=== PATIENT | female | born 1955 | race Two or more races ===

== ENCOUNTER 2020-10-10 07:55 | Outpatient (REF) | payer MEDICARE, SELFPAY ==
[2020-10-10 09:35] LABS: Cholesterol 152 mg/dL; HDL Cholesterol 37 mg/dL; LDL Cholesterol Calculated 85 mg/dl; Triglycerides 154 mg/dL
== END 2020-10-10 07:56 | disposition home or self-care (01) ==
LOC: HO.LAB 07:55
PROVIDERS: Visit Provider Internal Medicine
DX: E78.5 Hyperlipidemia, unspecified (principal)
CPT/HCPCS: 80061; 84443

== ENCOUNTER 2021-06-02 11:26 | Outpatient (REF) | payer OTHER, SELFPAY ==
[2021-06-02 12:32] LABS: Cholesterol 180 mg/dL; HDL Cholesterol 41 mg/dL; LDL Cholesterol Calculated 117 mg/dl; Triglycerides 112 mg/dL
[2021-06-02 12:53] LABS: Thyroid Stimulating Hormone 0.71 uIU/mL (0.32-4.0)
== END 2021-06-02 11:27 | disposition home or self-care (01) ==
LOC: HO.LAB 11:26
PROVIDERS: PCP Internal Medicine; Visit Provider Internal Medicine
DX: E03.9 Hypothyroidism, unspecified (principal); E11.9 Type 2 diabetes mellitus without complications
CPT/HCPCS: 36415; 80061; 84443

== ENCOUNTER 2021-08-29 12:24 | Outpatient (REF) | payer OTHER, SELFPAY ==
--- NOTE | ~2021-08-29 | MM_ITS ---
EXAMINATION: MM SCREENING DIGITAL BREAST TOMOSYNTHESIS, BILATERAL CLINICAL INFORMATION: Screening. Asymptomatic. The lifetime risk of breast cancer based on the Tyrer-Cuzick Model is 3%. COMPARISON: Mammography: 07/19/2020, 04/18/2019, 03/15/2018 TECHNIQUE: Digital breast tomosynthesis is performed in both the craniocaudal and mediolateral oblique views along with computer-aided detection (CAD). Synthesized 2D images are generated from the tomosynthesis. FINDINGS: There are scattered areas of fibroglandular density (ACR BI-RADS breast composition Category b). There are no significant masses, abnormal calcifications, or other abnormalities. Parenchymal pattern is similar to prior exams. There is stable circumscribed nodule mid upper outer right breast likely intraparenchymal node. Low left axillary tail node is also stable. Skin contours are smooth. MM/MM tomosynthesis screening BI IMPRESSION: No mammographic evidence of malignancy. ASSESSMENT: BI-RADS 2: Benign RECOMMENDATION: Routine annual mammography screening. This patient's information was entered into a reminder system with a target due date for their next mammogram.
== END 2021-08-29 12:25 | disposition home or self-care (01) ==
LOC: HO.MAMMO 12:24
PROVIDERS: PCP Internal Medicine; Visit Provider Internal Medicine
DX: Z12.31 Encounter for screening mammogram for malignant neoplasm of breast (principal)
CPT/HCPCS: 77063; 77067

== ENCOUNTER 2021-10-26 10:46 | Outpatient (REF) | payer OTHER, SELFPAY ==
[2021-10-26 12:22] LABS: Cholesterol 179 mg/dL; HDL Cholesterol 37 mg/dL; LDL Cholesterol Calculated 117 mg/dl; Triglycerides 127 mg/dL
[2021-10-26 12:27] LABS: Uric Acid 7.6 mg/dL (2.4-5.7)
== END 2021-10-26 10:47 | disposition home or self-care (01) ==
LOC: HO.LAB 10:46
PROVIDERS: PCP Internal Medicine; Visit Provider Internal Medicine
DX: E11.9 Type 2 diabetes mellitus without complications (principal); E03.9 Hypothyroidism, unspecified; M10.9 Gout, unspecified
CPT/HCPCS: 36415; 80061; 84443; 84550

== ENCOUNTER 2021-11-20 10:11 | Day surgery (SDC) | payer OTHER, SELFPAY ==
[2021-11-14 13:40] VITALS: BMI 40.4
--- NOTE | 2021-11-17 09:59 | HO.ANESPROP2 ---
Documented by User: Glenna Alarcon NP 11/17/21 10:00 HPI - Anesthesia Eval Consult details Narrative: 66yo F for Colonoscopy PMFSH Active Problems Active Problems: All Active Problems (Updated 11/14/21 @ 13:41 by Rebecca Landry RN) Obesity (Acute) Hyperlipidemia (Acute) Past Medical History Medical History Asthma COVID-19 vaccine series completed Hyperlipidemia Hypothyroid Obesity Family History Family History (Updated 06/09/21 @ 09:12 by MUKUL Marques) Father Brain aneurysm Mother Medical history unknown Surgical History Surgical History H/O colonoscopy H/O rectal polypectomy History of cholecystectomy History of surgery History of total abdominal hysterectomy and bilateral salpingo-oophorectomy History of tubal ligation History of ventral hernia repair Social History Social History Housing: House Alcohol intake: never Patient Tobacco Use Status: Never used Tobacco e-Cigarette/Vaping Use: Never Used Second Hand Smoke Exposure: No Use of substances other than those prescribed or required for medical reasons: No Have you been hit, kicked, punched, or otherwise hurt by someone within the past year? If so, by whom?: No Are you DNR?: No Advance Directives: No (primary contact is son but no official HCP form) Advance Directives Information Provided: Yes (brochure mailed) Advance Directives on File: No Recently lost weight without trying: No Eating poorly because of decreased appetite: No Nutrition Risks: No Nutritional Risk service: No Current occupational status: employed Meds Allergies Allergy/AdvReac Type Severity Reaction Status Date / Time No Known Allergies Allergy Verified 10/31/21 10:57 Exam Exam Date and Time: November 17, 2021 0959 Height,Weight and Vital Signs: Height 5 ft 2 in Weight 100.244 kg Assessment and Plan Assessment Anesthesia Assessment: Chart Reviewed Documented by User: Kirt Patricio MD 11/20/21 11:17 PMFSH Past Medical History Medical History Asthma COVID-19 vaccine series completed Hyperlipidemia Hypothyroid Obesity Family History Family History (Updated 06/09/21 @ 09:12 by MUKUL Marques) Father Brain aneurysm Mother Medical history unknown Family history of problems with anesthesia: No Surgical History Surgical History H/O colonoscopy H/O rectal polypectomy History of cholecystectomy History of surgery History of total abdominal hysterectomy and bilateral salpingo-oophorectomy History of tubal ligation History of ventral hernia repair History of Problems with Anesthesia: No Social History Social History Housing: House Alcohol intake: never Patient Tobacco Use Status: Never used Tobacco e-Cigarette/Vaping Use: Never Used Second Hand Smoke Exposure: No Use of substances other than those prescribed or required for medical reasons: No Have you been hit, kicked, punched, or otherwise hurt by someone within the past year? If so, by whom?: No Are you DNR?: No Advance Directives: No (primary contact is son but no official HCP form) Advance Directives Information Provided: Yes (brochure mailed) Advance Directives on File: No Recently lost weight without trying: No Eating poorly because of decreased appetite: No Nutrition Risks: No Nutritional Risk service: No Current occupational status: employed Meds Allergies Allergy/AdvReac Type Severity Reaction Status Date / Time No Known Allergies Allergy Verified 10/31/21 10:57 Exam Airway Mallampati Class: III TM Dist: >3cm Neck ROM: Full Assessment and Plan Assessment Anesthesia Assessment: Anesthesia Plan Discussed Final Anesthetic Review Family History of Problems with Anesthesia: No History of Problems with Anesthesia: No NPO: Yes ASA Class: II Final Preanesthetic Review: No Changes in Pt Med Stat, Meds/Allgs Chart Reviewed, Consent Obtained/Reviewed and Anes Risks/Benef Reviewed Patient Risk: Intermediate Procedure Risk: Low Anesthetic Plan Anesthetic Plan: MAC: Disposition: Standard PACU
[2021-11-20 10:38] VITALS: BP 137/80; PULSE 98; RESP 18; TEMP 36; O2SAT 99
[2021-11-20] MEDS: Lactated Ringers 1,000 ML 100 ML IVCONT (10:45)
[2021-11-20 12:55] VITALS: BP 101/61; PULSE 86; RESP 14; TEMP 36.6; O2SAT 98
--- NOTE | 2021-11-20 12:56 | P.BOP_ITS ---
Brief Operative Note Date of Service: 11/20/21 Pre-op diagnosis: Screening Post-op diagnosis: other (Diverticulosis) Procedure: Colonoscopy to the cecum Surgeon: Joaquín De Los Santos Anesthesia: MAC Was an Engineering Test Specialist used for this Procedure?: No Estimated blood loss (mL): 0 Pathology: none sent Condition: stable Disposition: PACU
[2021-11-20 13:10] VITALS: BP 126/86; PULSE 81; RESP 18; TEMP 36.6; O2SAT 98
--- NOTE | 2021-11-20 23:02 | OP_ITS ---
SURGEON: Joaquín De Los Santos MD INDICATIONS: The patient presents for evaluation of colorectal cancer screening and personal history of tubular adenoma of the colon. Full consent was obtained from her for this, including risks of bleeding and perforation. PREOPERATIVE DIAGNOSIS: POSTOPERATIVE DIAGNOSIS: PROCEDURE PERFORMED: Colonoscopy to the cecum. ESTIMATED BLOOD LOSS: COMPLICATIONS: ANESTHESIA: Monitored anesthesia care. ASSISTANTS: SPECIMENS: PREOPERATIVE DIAGNOSES: Colorectal cancer screening and personal history of tubular adenoma of the colon. POSTOPERATIVE DIAGNOSES: Colorectal cancer screening and personal history of tubular adenoma of the colon, diverticulosis, and internal hemorrhoids. DESCRIPTION OF PROCEDURE: The patient was placed in the left lateral decubitus position. The digital rectal exam revealed no abnormalities. The Olympus video pediatric colonoscope was entered into the rectum and advanced easily to the cecum. Once in the cecum, I did identify normal-appearing cecal pouch with appendiceal orifice and a normal-appearing ileocecal valve. The entire cecum and ileocecal valve appeared normal. There was transillumination of light deep in the right lower quadrant. The scope was slowly withdrawn assessing all mucosal surfaces carefully. Preparation was excellent. I did not visualize any sign of polyps, colitis, or angiodysplasia. There was a moderate amount of sigmoid diverticulosis. In the rectum, the scope was retroflexed visualizing internal hemorrhoids, but no other pathology. The rectal mucosa appeared normal. The scope was straightened and withdrawn from the patient. She tolerated the procedure well and was returned to the recovery area in stable condition. IMPRESSION: 1. Diverticulosis. 2. Internal hemorrhoids. PLAN: I would recommend repeat colonoscopy in 5 years for further screening. She will otherwise see me on a p.r.n. basis. Joaquín De Los Santos MD RMW/BALDOL / [phone]
== END 2021-11-20 13:42 | disposition home or self-care (01) ==
PROVIDERS: PCP Internal Medicine; Visit Provider Internal Medicine
PROC: 0DJD8ZZ Inspection of Lower Intestinal Tract, Via Natural or Artificial Opening Endoscopic (ICD-10-PCS; CPT 45378; principal; 2021-11-20 11:10)
DX: Z12.11 Encounter for screening for malignant neoplasm of colon (principal); Z86.010 Personal history of colon polyps; K57.30 Diverticulosis of large intestine without perforation or abscess without bleeding; K64.8 Other hemorrhoids; E78.00 Pure hypercholesterolemia, unspecified; E03.9 Hypothyroidism, unspecified; J45.20 Mild intermittent asthma, uncomplicated; Z79.899 Other long term (current) drug therapy
CPT/HCPCS: 45378

== ENCOUNTER 2022-01-31 12:49 | Outpatient (REF) | payer OTHER, SELFPAY ==
[2022-01-31 14:33] LABS: Cholesterol 203 mg/dL; HDL Cholesterol 40 mg/dL; LDL Cholesterol Calculated 138 mg/dl; Triglycerides 127 mg/dL
== END 2022-01-31 12:50 | disposition home or self-care (01) ==
LOC: HO.LAB 12:49
PROVIDERS: PCP Internal Medicine; Visit Provider Internal Medicine
DX: Z00.00 Encounter for general adult medical examination without abnormal findings (principal)
CPT/HCPCS: 36415; 80061; 84443

== ENCOUNTER 2022-05-24 08:31 | Outpatient (REF) | payer OTHER, SELFPAY ==
[2022-05-24 09:22] LABS: Cholesterol 185 mg/dL; HDL Cholesterol 37 mg/dL; LDL Cholesterol Calculated 114 mg/dl; Triglycerides 170 mg/dL
[2022-05-24 09:45] LABS: Thyroid Stimulating Hormone 0.49 uIU/mL (0.32-4.0)
== END 2022-05-24 08:32 | disposition home or self-care (01) ==
LOC: HO.LAB 08:31
PROVIDERS: PCP Internal Medicine; Visit Provider Internal Medicine
DX: Z00.00 Encounter for general adult medical examination without abnormal findings (principal)
CPT/HCPCS: 36415; 80061; 84443

== ENCOUNTER 2022-08-28 08:09 | Outpatient (REF) | payer OTHER, SELFPAY ==
[2022-08-28 09:28] LABS: Cholesterol 185 mg/dL; HDL Cholesterol 41 mg/dL; LDL Cholesterol Calculated 105 mg/dl; Triglycerides 197 mg/dL
[2022-08-28 09:53] LABS: Thyroid Stimulating Hormone 0.49 uIU/mL (0.32-4.0)
== END 2022-08-28 08:10 | disposition home or self-care (01) ==
LOC: HO.LAB 08:09
PROVIDERS: PCP Internal Medicine; Visit Provider Internal Medicine
DX: E03.9 Hypothyroidism, unspecified (principal); E78.5 Hyperlipidemia, unspecified
CPT/HCPCS: 36415; 80061; 84443

== ENCOUNTER 2022-09-06 11:39 | Outpatient (REF) | payer OTHER, SELFPAY ==
--- NOTE | ~2022-09-06 | MM_ITS ---
EXAMINATION: MM SCREENING DIGITAL BREAST TOMOSYNTHESIS, BILATERAL CLINICAL INFORMATION: Screening. Asymptomatic. COMPARISON: Mammography: August 29, 2021 and studies dating back to January 04, 2016 TECHNIQUE: Digital breast tomosynthesis is performed in both the craniocaudal and mediolateral oblique views along with computer-aided detection (CAD). Synthesized 2D images are generated from the tomosynthesis. FINDINGS: There are scattered areas of fibroglandular density (ACR BI-RADS breast composition Category b). There are no significant masses, abnormal calcifications, or other abnormalities. MM/MM tomosynthesis screening BI IMPRESSION: No significant changes from prior exam. ASSESSMENT: BI-RADS 1: Negative RECOMMENDATION: Routine annual mammography screening. This patient's information was entered into a reminder system with a target due date for their next mammogram.
== END 2022-09-06 11:40 | disposition home or self-care (01) ==
LOC: HO.MAMMO 11:39
PROVIDERS: PCP Internal Medicine; Visit Provider Internal Medicine
DX: Z12.31 Encounter for screening mammogram for malignant neoplasm of breast (principal)
CPT/HCPCS: 77063; 77067

== ENCOUNTER 2022-11-17 07:02 | Outpatient (REF) | payer OTHER, SELFPAY ==
[2022-11-17 07:33] LABS: COVID-19 Test Negative (Negative); IDNOW Serial# 16C4AD1C
== END 2022-11-17 07:03 | disposition home or self-care (01) ==
LOC: HO.LAB 07:02
PROVIDERS: PCP Internal Medicine; Visit Provider Internal Medicine
DX: Z20.822 Contact with and (suspected) exposure to COVID-19 (principal)
CPT/HCPCS: 87635; C9803

== ENCOUNTER 2022-12-11 06:37 | Outpatient (REF) | payer OTHER, SELFPAY ==
[2022-12-11 08:13] LABS: Cholesterol 177 mg/dL; HDL Cholesterol 36 mg/dL; LDL Cholesterol Calculated 116 mg/dl; Triglycerides 129 mg/dL
[2022-12-11 08:32] LABS: Thyroid Stimulating Hormone 0.75 uIU/mL (0.32-4.0)
== END 2022-12-11 06:38 | disposition home or self-care (01) ==
LOC: HO.LAB 06:37
PROVIDERS: PCP Internal Medicine; Visit Provider Internal Medicine
DX: E78.5 Hyperlipidemia, unspecified (principal); E03.9 Hypothyroidism, unspecified
CPT/HCPCS: 36415; 80061; 84443

== ENCOUNTER 2023-03-18 06:33 | Outpatient (REF) | payer OTHER, SELFPAY ==
[2023-03-18 08:03] LABS: Cholesterol 174 mg/dL; HDL Cholesterol 36 mg/dL; LDL Cholesterol Calculated 102 mg/dl; Triglycerides 182 mg/dL
== END 2023-03-18 06:34 | disposition home or self-care (01) ==
LOC: HO.LAB 06:33
PROVIDERS: PCP Internal Medicine; Visit Provider Internal Medicine
DX: E78.5 Hyperlipidemia, unspecified (principal); E03.9 Hypothyroidism, unspecified
CPT/HCPCS: 36415; 80061; 84443

== ENCOUNTER 2023-05-13 08:38 | Outpatient (AMB) | payer OTHER, SELFPAY ==
--- NOTE | 2023-05-13 08:45 | MHC.PC.OV ---
Vital Signs 05/13/23 08:46 Height 5 ft 2 in Weight 218 lb BMI 39.9 BP 120/70 Blood Pressure Location Lt brachial Position Sitting Pulse 87 Pulse Source Pulse Oximeter Pulse Oximetry (%) 94 Oxygen Delivery Method Room Air Intake Visit Reasons: 3m Follow up medications Intake Note: Patient is here to follow up on Hypothyroid and Hyperlipidemia. Parole Officer Required: No Customer Operations Intern: Not Required per policy Accompanied by: Self / Same As Patient Allergies No Known Allergies Allergy (Verified 05/13/23 08:46) Medication List - Last Reconciled 05/13/23 by Pavel Hollis MD atorvastatin 40 mg PO DAILY levothyroxine 100 mcg PO DAILY Tobacco use date assessed: 05/13/23 Fall risk assessment: No Falls in past year Last assessed Fall Risk: 05/13/23 Dental Screening Dental Screen Date: 05/13/23 Did you have a dental visit in the last 12 months?: No Did you have a dental problem in the last 6 months where you did not have access to dental care?: No Was dental information given to patient?: No HPI 3m Follow up medications HPI Details hyperlipidemia and hypothyr on rx; compliant; doing well COUNT INCLUDES THE [facility] Medical History (Updated 12/18/22 @ 14:38 by Pavel Hollis MD) Asthma COVID-19 vaccine series completed Hyperlipidemia Hypothyroid Obesity Surgical History H/O colonoscopy H/O rectal polypectomy History of cholecystectomy History of surgery History of total abdominal hysterectomy and bilateral salpingo-oophorectomy History of tubal ligation History of ventral hernia repair Family History Father Brain aneurysm Mother Medical history unknown Social History Housing: House Alcohol intake: never Patient Tobacco Use Status: Never used Tobacco e-Cigarette/Vaping Use: Never Used Second Hand Smoke Exposure: No service: No Current occupational status: employed Cognitive needs: No Hearing needs: No Vision needs: Yes Questionnaire PHQ-9 Over the last 2 weeks, how often have you been bothered by any of the following problems? Depression Screening Interpretation: Negative Source: Developed by Drs. Joaquín Swift, Rosana B.Lucas Barbosa and colleagues, with an educational maite from [employer]. Thrive Questionnaire Date Thrive assessed: 12/18/22 Currently or been in a relationship where the following occur: no concerns reported LUISANA-7 AMB Questionnaire LUISANA-7 Date LUISANA - 7 assessed: 12/18/22 Source: Developed by Drs. Joaquín Swift, Lucas Teixeira and colleagues, with an educational maite from [employer]. Review of Systems Const Denies chills, Denies headache(s) and Denies weight loss ENT Denies headache(s) Card Denies chest pain, Denies syncope, Denies irregular heart rhythm and Denies dyspnea Resp Denies chest congestion, Denies cough and Denies dyspnea GI Denies abdominal pain, Denies change in stool character, Denies nausea and Denies vomiting Musc Denies deformity and Denies joint swelling Neuro Denies syncope and Denies headache(s) Physical exam (Primary Care) Vital Signs: Last Vital Signs Pulse 87 05/13/23 08:46 BP 120/70 05/13/23 08:46 Pulse Ox 94 05/13/23 08:46 Oxygen Delivery Method Room Air 05/13/23 08:46 BMI result Body Mass Index 39.9 obesity BMI Assessment/Plan discussion: High BMI High, discussed plan: lifestyle, weight reduction, dietary and physical activity Tobacco/Smoking Status: Tobacco use Status Tobacco use date assessed 05/13/23 05/13/23 08:49 Patient Tobacco Use Status Never used Tobacco 05/13/23 08:49 e-Cigarette/Vaping Use Never Used 05/13/23 08:49 Depression Screening Interpretation: Negative Thrive Assessment: Date of Thrive Assessment Date Thrive assessed 12/18/22 05/13/23 08:49 Currently or been in a relationship where the following occur: no concerns reported Const General: cooperative, comfortable and no acute distress Chest Chest palpation & inspection: normal inspection of the chest Resp Effort & Inspection: normal respiratory effort Auscultation: clear to auscultation bilaterally Percussion: percussion normal Cardio Jugular venous distension: no JVD Rate: regular rate Rhythm: regular rhythm GI Inspection: Yes normal to inspection Assessment and Plan Assessment & Plan (1) Hypothyroid: Code(s): E03.9 - Hypothyroidism, unspecified Plan: stable; do labs (2) Hyperlipidemia: Code(s): E78.5 - Hyperlipidemia, unspecified Plan: stable; do labs (3) Obesity: Code(s): E66.9 - Obesity, unspecified Plan: stable; as above Orders: Orders Lipid Panel Today E78.5 - Hyperlipidemia, unspecified Thyroid Stimulating Hormone Today E03.9 - Hypothyroidism, unspecified Coding Level of Care Code Est Pt Level 4 (43092) Diagnoses Hypothyroid E03.9 Hyperlipidemia E78.5 Obesity E66.9
[2023-05-13 08:46] VITALS: BP 120/70; PULSE 87; O2SAT 94; BMI 39.9
== END 2023-05-13 08:57 | disposition home or self-care (01) ==
PROVIDERS: PCP Internal Medicine; Visit Provider Internal Medicine
DX: E03.9 Hypothyroidism, unspecified (principal); E78.5 Hyperlipidemia, unspecified; E66.9 Obesity, unspecified; Z68.39 Body mass index [BMI] 39.0-39.9, adult
CPT/HCPCS: 99214

== ENCOUNTER 2023-08-10 08:30 | Outpatient (REF) | payer OTHER, SELFPAY ==
[2023-08-10 09:52] LABS: Cholesterol 169 mg/dL (<200); HDL Cholesterol 39 mg/dL (>40); LDL Cholesterol Calculated 114 mg/dL (<100); Triglycerides 82 mg/dL (<150)
[2023-08-10 09:55] LABS: Thyroid Stimulating Hormone 0.34 uIU/mL (0.32-4.0)
== END 2023-08-10 08:31 | disposition home or self-care (01) ==
LOC: HO.LAB 08:30
PROVIDERS: PCP Internal Medicine; Visit Provider Internal Medicine
DX: E03.9 Hypothyroidism, unspecified (principal); E78.5 Hyperlipidemia, unspecified
CPT/HCPCS: 36415; 80061; 84443

== ENCOUNTER 2023-08-19 14:13 | Outpatient (AMB) | payer OTHER, SELFPAY ==
[2023-08-19 14:24] VITALS: BP 134/70; PULSE 95; O2SAT 96; BMI 39.3
--- NOTE | 2023-08-19 14:24 | MHC.PC.OV ---
Vital Signs 08/19/23 14:24 Height 5 ft 2 in Weight 215 lb BMI 39.3 BP 134/70 Blood Pressure Location Lt brachial Position Sitting Pulse 95 Pulse Source Pulse Oximeter Pulse Oximetry (%) 96 Oxygen Delivery Method Room Air Intake Visit Reasons: 3mth f/u Allergies No Known Allergies Allergy (Verified 08/19/23 14:24) Medication List - Last Reconciled 08/20/23 by Pavel Hollis MD atorvastatin 40 mg PO DAILY levothyroxine 100 mcg PO DAILY Tobacco use date assessed: 05/13/23 Fall risk assessment: No Falls in past year Last assessed Fall Risk: 08/19/23 Dental Screening Dental Screen Date: 08/19/23 Did you have a dental visit in the last 12 months?: No Did you have a dental problem in the last 6 months where you did not have access to dental care?: No Was dental information given to patient?: Patient has dentist HPI 3mth f/u HPI Details hyperlipidemia nd hypothyr on rx; doing well; compliant [facility] Medical History COVID-19 vaccine series completed Hypothyroid Asthma Obesity Hyperlipidemia Surgical History H/O colonoscopy History of surgery History of total abdominal hysterectomy and bilateral salpingo-oophorectomy History of ventral hernia repair H/O rectal polypectomy History of tubal ligation History of cholecystectomy Family History Father Brain aneurysm Mother Medical history unknown Social History Housing: House Alcohol intake: never Patient Tobacco Use Status: Never used Tobacco e-Cigarette/Vaping Use: Never Used Second Hand Smoke Exposure: No service: No Current occupational status: employed Cognitive needs: No Hearing needs: No Vision needs: Yes Questionnaire PHQ-9 Over the last 2 weeks, how often have you been bothered by any of the following problems? 1. Little interest or pleasure in doing things: not at all 2. Feeling down, depressed, or hopeless: not at all 3. Trouble falling or staying asleep, or sleeping too much: not at all 4. Feeling tired or having little energy: not at all 5. Poor appetite or overeating: not at all 6. Feeling bad about yourself - or that you are a failure or have let yourself or your family down: not at all 7. Trouble concentrating on things, such as reading the newspaper or watching television: not at all 8. Moving or speaking so slowly that other people could have noticed. Or the opposite - being so fidgety or restless that you have been moving around a lot more than usual: not at all 9. Thoughts that you would be better off or of hurting yourself in some way: not at all Total score: 0 Depression Screening Interpretation: Negative Depression Screening Done: Yes Source: Developed by Drs. Joaquín Swift, Rosana Garg, Lucas Sales and colleagues, with an educational maite from [employer]. Thrive Questionnaire Date Thrive assessed: 12/18/22 AUDIT C Alcohol Use Questionnaire (AUDIT-C) 1. How often do you have a drink containing alcohol?: Never Total Score: 0 Score Reviewed/Action Taken: Yes LUISANA-7 AMB Questionnaire LUISANA-7 Date LUISANA - 7 assessed: 12/18/22 Source: Developed by Drs. Joaquín Swift, Rosana Garg, Lucas Sales and colleagues, with an educational maite from [employer]. Review of Systems Const Denies chills, Denies headache(s) and Denies weight loss ENT Denies headache(s) Card Denies chest pain, Denies syncope, Denies irregular heart rhythm and Denies dyspnea Resp Denies chest congestion, Denies cough and Denies dyspnea GI Denies abdominal pain, Denies change in stool character, Denies nausea and Denies vomiting Musc Denies deformity and Denies joint swelling Neuro Denies syncope and Denies headache(s) Physical exam (Primary Care) Vital Signs: Last Vital Signs Pulse 95 08/19/23 14:24 BP 134/70 08/19/23 14:24 Pulse Ox 96 08/19/23 14:24 Oxygen Delivery Method Room Air 08/19/23 14:24 BMI result Body Mass Index 39.3 Tobacco/Smoking Status: Tobacco use Status Tobacco use date assessed 05/13/23 08/19/23 14:25 Patient Tobacco Use Status Never used Tobacco 08/19/23 14:25 e-Cigarette/Vaping Use Never Used 08/19/23 14:25 PHQ-9: PHQ-9 Score PHQ-9: Total score 0 08/19/23 14:25 Depression Screening Interpretation: Negative Thrive Assessment: Date of Thrive Assessment Date Thrive assessed 12/18/22 08/19/23 14:25 Const General: cooperative, comfortable, no acute distress and alert Neck Neck: Yes no lymphadenopathy Thyroid: Thyroid normal Resp Effort & Inspection: normal respiratory effort Auscultation: clear to auscultation bilaterally Percussion: percussion normal Cardio Jugular venous distension: no JVD Palpation: normal PMI Rate: regular rate Rhythm: regular rhythm Heart sounds: S1 normal heart sound present and S2 normal heart sound present GI Inspection: Yes normal to inspection Palpation (GI): No hepatosplenomegaly present Skin General skin exam: no rashes or lesions noted Extrem General: Yes no clubbing, cyanosis or edema Assessment and Plan Assessment & Plan (1) Hypothyroid: Code(s): E03.9 - Hypothyroidism, unspecified Plan: stable; same rx (2) Hyperlipidemia: Code(s): E78.5 - Hyperlipidemia, unspecified Plan: stable; same rx Orders: Orders Lipid Panel Today E78.5 - Hyperlipidemia, unspecified Thyroid Stimulating Hormone Today E03.9 - Hypothyroidism, unspecified Coding Level of Care Code Est Pt Level 3 (55998) Diagnoses Hypothyroid E03.9 Hyperlipidemia E78.5
== END 2023-08-19 14:34 | disposition home or self-care (01) ==
PROVIDERS: PCP Internal Medicine; Visit Provider Internal Medicine
DX: E03.9 Hypothyroidism, unspecified (principal); E78.5 Hyperlipidemia, unspecified
CPT/HCPCS: 99213

== ENCOUNTER 2023-09-12 15:09 | Outpatient (REF) | payer OTHER, SELFPAY | END 2023-09-12 15:10 | disposition home or self-care (01) | LOC: HO.MAMMO 15:09 | PROVIDERS: PCP Internal Medicine; Visit Provider Internal Medicine | DX: Z12.31 Encounter for screening mammogram for malignant neoplasm of breast (principal) | CPT/HCPCS: 77063; 77067 ==

== ENCOUNTER → 2023-09-12 15:30 | Outpatient (BNV) | payer OTHER, SELFPAY | PROVIDERS: PCP Internal Medicine; Visit Provider Radiology Diagnostic Radiology | DX: Z12.31 Encounter for screening mammogram for malignant neoplasm of breast (principal) | CPT/HCPCS: 77063; 77067 ==

== ENCOUNTER 2023-12-04 06:35 | Outpatient (REF) | payer OTHER, SELFPAY ==
[2023-12-04 07:25] LABS: Cholesterol 191 mg/dL (<200); HDL Cholesterol 40 mg/dL (>40); LDL Cholesterol Calculated 127 mg/dL (<100); Triglycerides 121 mg/dL (<150)
== END 2023-12-04 06:36 | disposition home or self-care (01) ==
LOC: HO.LAB 06:35
PROVIDERS: PCP Internal Medicine; Visit Provider Internal Medicine
DX: E03.9 Hypothyroidism, unspecified (principal); E78.5 Hyperlipidemia, unspecified
CPT/HCPCS: 36415; 80061; 84443

== ENCOUNTER 2023-12-09 14:01 | Outpatient (AMB) | payer OTHER, SELFPAY ==
[2023-12-09 14:05] VITALS: BP 140/84; PULSE 92; O2SAT 95; BMI 40.1
--- NOTE | 2023-12-09 14:05 | MHC.PC.OV ---
Vital Signs 12/09/23 14:05 Height 5 ft 2 in Weight 219 lb BMI 40.1 BP 140/84 H Blood Pressure Location Lt brachial Position Sitting Pulse 92 Pulse Source Pulse Oximeter Pulse Oximetry (%) 95 Oxygen Delivery Method Room Air Intake Visit Reasons: follow up, medication Clinical Specialty Rep Required: No Meat Grader: Not Required per policy Accompanied by: Self / Same As Patient Allergies No Known Allergies Allergy (Verified 12/09/23 14:06) Medication List - Last Reconciled 12/09/23 by Pavel Hollis MD atorvastatin 40 mg PO DAILY levothyroxine 100 mcg PO DAILY Tobacco use date assessed: 12/09/23 Fall risk assessment: No Falls in past year Last assessed Fall Risk: 12/09/23 Dental Screening Dental Screen Date: 12/09/23 Did you have a dental visit in the last 12 months?: No Did you have a dental problem in the last 6 months where you did not have access to dental care?: No Was dental information given to patient?: Patient has dentist HPI follow up, medication HPI Details HTN and hyperlip on rx; doing well and compliant [facility] Medical History COVID-19 vaccine series completed Hypothyroid Asthma Obesity Hyperlipidemia Surgical History H/O colonoscopy History of surgery History of total abdominal hysterectomy and bilateral salpingo-oophorectomy History of ventral hernia repair H/O rectal polypectomy History of tubal ligation History of cholecystectomy Family History Father Brain aneurysm Mother Medical history unknown Social History Housing: House Alcohol intake: never Patient Tobacco Use Status: Never used Tobacco e-Cigarette/Vaping Use: Never Used Second Hand Smoke Exposure: No service: No Current occupational status: employed Cognitive needs: No Hearing needs: No Vision needs: Yes Questionnaire PHQ-9 Over the last 2 weeks, how often have you been bothered by any of the following problems? 1. Little interest or pleasure in doing things: not at all 2. Feeling down, depressed, or hopeless: not at all 3. Trouble falling or staying asleep, or sleeping too much: not at all 4. Feeling tired or having little energy: not at all 5. Poor appetite or overeating: not at all 6. Feeling bad about yourself - or that you are a failure or have let yourself or your family down: not at all 7. Trouble concentrating on things, such as reading the newspaper or watching television: not at all 8. Moving or speaking so slowly that other people could have noticed. Or the opposite - being so fidgety or restless that you have been moving around a lot more than usual: not at all 9. Thoughts that you would be better off or of hurting yourself in some way: not at all Total score: 0 Depression Screening Interpretation: Negative Depression Screening Done: Yes 42658 - PHQ-9 Billing: Yes Source: Developed by Drs. Joaquín Swift, Rosana Garg, Lucas Sales and colleagues, with an educational maite from [employer]. Thrive Questionnaire Date Thrive assessed: 12/09/23 I am a: Patient What is your living situation today?: I have a steady place to live Within the past 12 months, did the food you bought not last and you didn't have the money to get more?: Never true Within the past 12 months, did you worry whether your food would run out before you got money to buy more?: Never true Do you have trouble paying for medicines?: No Do you have trouble getting transportation to medical appointments?: No Do you have trouble paying your heating and electricity bill?: No Do you have trouble taking care of your child, family member or friend?: No Do you have trouble with day-to-day activities such as bathing, preparing meals, shopping, managing finances, etc.?: No Are you currently unemployed and looking for a job?: No Are you interested in more education?: No Please select the resources that you would like help with: None THRIVE Score: 0 AUDIT C Alcohol Use Questionnaire (AUDIT-C) 1. How often do you have a drink containing alcohol?: Never Total Score: 0 Score Reviewed/Action Taken: Yes LUISANA-7 AMB Questionnaire LUISANA-7 Date LUISANA - 7 assessed: 12/09/23 Feeling nervous, anxious, or on edge: 1 = Several days Not being able to stop or control worryin = Several days Worrying too much about different things: 0 = Not at all Trouble relaxin = Not at all Being so restless that it is hard to sit still: 0 = Not at all Becoming easily annoyed or irritable: 0 = Not at all Feeling afraid as if something awful might happen: 0 = Not at all Total LUISANA-7 score (0-4 normal; 5-9 mild; 10-14 moderate; 15-21 severe): 2 Source: Developed by Drs. Joaquín Swift, Rosana Garg, Lucas Sales and colleagues, with an educational maite from [employer]. LUISANA-7 Assessment Billing LUISANA-7 Assessment Tool: LUISANA-7 Assessment 17973 Review of Systems Const Denies chills, Denies headache(s) and Denies weight loss ENT Denies headache(s) Card Denies chest pain, Denies syncope, Denies irregular heart rhythm and Denies dyspnea Resp Denies chest congestion, Denies cough and Denies dyspnea GI Denies abdominal pain, Denies change in stool character, Denies nausea and Denies vomiting Musc Denies deformity and Denies joint swelling Neuro Denies syncope and Denies headache(s) Physical exam (Primary Care) Vital Signs: Last Vital Signs Pulse 92 12/09/23 14:05 BP 140/84 H 12/09/23 14:05 Pulse Ox 95 12/09/23 14:05 Oxygen Delivery Method Room Air 12/09/23 14:05 BMI result Body Mass Index 40.1 Tobacco/Smoking Status: Tobacco use Status Tobacco use date assessed 12/09/23 12/09/23 14:07 Patient Tobacco Use Status Never used Tobacco 12/09/23 14:07 e-Cigarette/Vaping Use Never Used 12/09/23 14:07 PHQ-9: PHQ-9 Score PHQ-9: Total score 0 12/09/23 14:07 Depression Screening Interpretation: Negative Thrive Assessment: Date of Thrive Assessment Date Thrive assessed 12/09/23 12/09/23 14:07 Const General: cooperative, comfortable, no acute distress and alert Neck Neck: Yes no lymphadenopathy Thyroid: Thyroid normal Resp Effort & Inspection: normal respiratory effort Auscultation: clear to auscultation bilaterally Percussion: percussion normal Cardio Jugular venous distension: no JVD Palpation: normal PMI Rate: regular rate Rhythm: regular rhythm Heart sounds: S1 normal heart sound present and S2 normal heart sound present GI Inspection: Yes normal to inspection Palpation (GI): No hepatosplenomegaly present Skin General skin exam: no rashes or lesions noted Extrem General: Yes no clubbing, cyanosis or edema Assessment and Plan Assessment & Plan (1) Hyperlipidemia: Code(s): E78.5 - Hyperlipidemia, unspecified Plan: stable; same rx (2) Hypothyroid: Code(s): E03.9 - Hypothyroidism, unspecified Plan: stable; same rx Orders: Orders Lipid Panel Today E78.5 - Hyperlipidemia, unspecified Complete Blood Count Auto Diff Today D64.9 - Anemia, unspecified Comprehensive [place]. Panel Fast Today N28.9 - Disorder of kidney and ureter, unspecified Thyroid Stimulating Hormone Today E03.9 - Hypothyroidism, unspecified Coding Level of Care Code Est Pt Level 3 (66635) Diagnoses Hyperlipidemia E78.5 Hypothyroid E03.9 Additional Codes LUISANA-7 Assessment Billing - LUISANA-7 Assessment Tool: LUISANA-7 Assessment 30857 ([id number])
== END 2023-12-09 14:27 | disposition home or self-care (01) ==
PROVIDERS: PCP Internal Medicine; Visit Provider Internal Medicine
DX: E78.5 Hyperlipidemia, unspecified (principal); E03.9 Hypothyroidism, unspecified
CPT/HCPCS: 99213

== ENCOUNTER 2024-04-04 09:11 | Outpatient (REF) | payer OTHER, SELFPAY ==
[2024-04-04 09:34] LABS: MANUAL DIFF FLAG NO
[2024-04-04 09:52] LABS: Basophils Absolute Auto 0.1 X10*3/uL (0.0-0.2); Basophils Percent Auto 0.8 % (0-2); Eosinophils Absolute Auto 0.2 X10*3/uL (0.0-0.4); Eosinophils Percent Auto 3.5 % (0-4); Hematocrit 41.6 % (37.0-47.0); Hemoglobin 12.4 g/dl (12.0-16.0); Imm Gran Abs Auto 0.02 X10*3/uL (0.00-0.03); Imm Gran Pct Auto 0.3 % (0.0-0.4); Lymphocytes Absolute Auto 2.2 X10*3/uL (1.2-4.9); Lymphocytes Percent Auto 35.3 % (20-40); Mean Corpuscular HGB Conc 29.8 g/dl (31.0-35.0); Mean Corpuscular Hemoglobin 24.3 pg (27.0-33.0); Mean Corpuscular Volume 81.6 fL (80.0-98.0); Mean Platelet Volume 10.8 fL (9.4-12.3); Monocytes Absolute Auto 0.6 X10*3/uL (0.1-1.2); Monocytes Percent Auto 9.5 % (2-11); Neutrophils Absolute Auto 3.2 x10*3/uL (2.0-8.3); Neutrophils Percent Auto 50.6 % (45-73); Platelet Count 256 X10*3/uL (160-400); Red Cell Distribution Width 15.2 % (11.0-16.0); White Blood Count 6.2 X10*3/uL (4.8-10.8)
[2024-04-04 10:24] LABS: Alanine Aminotransferase 12 U/L (0-31); Alkaline Phosphatase 103 U/L (39-117); Anion Gap 13 (12-20); Aspartate Amino Transferase 16 U/L (5-31); Bilirubin Total 0.7 mg/dL (0.0-1.0); Blood Urea Nitrogen 11 mg/dL (9-16); Calcium 9.4 mg/dL (8.4-10.2); Carbon Dioxide 27 mmol/L (22-29); Chloride 109 mmol/L (96-108); Cholesterol 184 mg/dL (<200); Estimated Glomerular Filt Rate 49; Glucose Fasting 93 mg/dL (60-99); HDL Cholesterol 32 mg/dL (>40); LDL Cholesterol Calculated 123 mg/dL (<100); Potassium 4.2 mmol/L (3.3-5.1); Sodium 145 mmol/L (135-145); Total Protein 7.5 g/dL (6.5-8.0); Triglycerides 145 mg/dL (<150)
[2024-04-04 10:41] LABS: Thyroid Stimulating Hormone 0.07 uIU/mL (0.32-4.0)
== END 2024-04-04 09:12 | disposition home or self-care (01) ==
LOC: HO.LAB 09:11
PROVIDERS: PCP Internal Medicine; Visit Provider Internal Medicine
DX: D64.9 Anemia, unspecified (principal); N28.9 Disorder of kidney and ureter, unspecified; E03.9 Hypothyroidism, unspecified; E78.5 Hyperlipidemia, unspecified
CPT/HCPCS: 36415; 80053; 80061; 84443; 85025

== ENCOUNTER 2024-08-06 13:26 | Outpatient (AMB) | payer OTHER, SELFPAY ==
[2024-08-06 13:35] VITALS: BP 130/72; PULSE 76; O2SAT 94; BMI 39.5
--- NOTE | 2024-08-06 13:35 | MHC.PC.OV ---
Vital Signs 08/06/24 13:35 Height 5 ft 2 in Weight 216 lb BMI 39.5 BP 130/72 Blood Pressure Location Lt brachial Position Sitting Pulse 76 Pulse Source Pulse Oximeter Pulse Oximetry (%) 94 Oxygen Delivery Method Room Air Intake Visit Reasons: F/U - Thyroid and Cholesterol Mechanical Unit Repairer Required: No Accompanied by: Self / Same As Patient Allergies No Known Allergies Allergy (Verified 08/06/24 13:40) Medication List - Last Reconciled 08/06/24 by Pavel Hollis MD atorvastatin 40 mg PO DAILY levothyroxine 100 mcg PO DAILY Tobacco use date assessed: 12/09/23 Fall risk assessment: No Falls in past year Last assessed Fall Risk: 08/06/24 Dental Screening Dental Screen Date: 12/09/23 HPI F/U - Thyroid and Cholesterol HPI Details hypothyroidism and hyperlipidemia on rx; doing well; due for labs [facility] Medical History COVID-19 vaccine series completed Hypothyroid Asthma Obesity Hyperlipidemia Surgical History H/O colonoscopy History of surgery History of total abdominal hysterectomy and bilateral salpingo-oophorectomy History of ventral hernia repair H/O rectal polypectomy History of tubal ligation History of cholecystectomy Family History Father Brain aneurysm Mother Medical history unknown Social History Housing: House Alcohol intake: never Patient Tobacco Use Status: Never used Tobacco Tobacco use type: Cigarette e-Cigarette/Vaping Use: Never Used Second Hand Smoke Exposure: No service: No Current occupational status: employed Cognitive needs: No Hearing needs: No Vision needs: Yes Questionnaire PHQ-9 Over the last 2 weeks, how often have you been bothered by any of the following problems? 1. Little interest or pleasure in doing things: not at all 2. Feeling down, depressed, or hopeless: not at all 3. Trouble falling or staying asleep, or sleeping too much: not at all 4. Feeling tired or having little energy: not at all 5. Poor appetite or overeating: not at all 6. Feeling bad about yourself - or that you are a failure or have let yourself or your family down: not at all 7. Trouble concentrating on things, such as reading the newspaper or watching television: not at all 8. Moving or speaking so slowly that other people could have noticed. Or the opposite - being so fidgety or restless that you have been moving around a lot more than usual: not at all 9. Thoughts that you would be better off or of hurting yourself in some way: not at all Total score: 0 Depression Screening Interpretation: Negative Depression Screening Done: Yes 36164 - PHQ-9 Billing: Yes Source: Developed by Drs. Joaquín Swift, Rosana Garg, Lucas Sales and colleagues, with an educational maite from [employer]. Thrive Questionnaire Date Thrive assessed: 12/09/23 Are you currently unemployed and looking for a job?: No AUDIT C Alcohol Use Questionnaire (AUDIT-C) 1. How often do you have a drink containing alcohol?: Never Total Score: 0 Score Reviewed/Action Taken: Yes LUISANA-7 AMB Questionnaire LUISANA-7 Date LUISANA - 7 assessed: 12/09/23 Source: Developed by Drs. Jaoquín Swift, Rosana Garg, Lucas Sales and colleagues, with an educational maite from [employer]. Review of Systems Const Denies chills, Denies headache(s) and Denies weight loss ENT Denies headache(s) Card Denies chest pain, Denies syncope, Denies irregular heart rhythm and Denies dyspnea Resp Denies chest congestion, Denies cough and Denies dyspnea GI Denies abdominal pain, Denies change in stool character, Denies nausea and Denies vomiting Musc Denies deformity and Denies joint swelling Neuro Denies syncope and Denies headache(s) Physical exam (Primary Care) Vital Signs: Last Vital Signs Pulse 76 08/06/24 13:35 BP 130/72 08/06/24 13:35 Pulse Ox 94 08/06/24 13:35 Oxygen Delivery Method Room Air 08/06/24 13:35 BMI result Body Mass Index 39.5 Tobacco/Smoking Status: Tobacco use Status Tobacco use date assessed 12/09/23 08/06/24 13:40 Patient Tobacco Use Status Never used Tobacco 08/06/24 13:40 Tobacco use type Cigarette 08/06/24 13:40 e-Cigarette/Vaping Use Never Used 08/06/24 13:40 PHQ-9: PHQ-9 Score PHQ-9: Total score 0 08/06/24 13:40 Depression Screening Interpretation: Negative Thrive Assessment: Date of Thrive Assessment Date Thrive assessed 12/09/23 08/06/24 13:40 Const General: cooperative, comfortable, no acute distress and alert Neck Neck: Yes no lymphadenopathy Thyroid: Thyroid normal Resp Effort & Inspection: normal respiratory effort Auscultation: clear to auscultation bilaterally Percussion: percussion normal Cardio Jugular venous distension: no JVD Palpation: normal PMI Rate: regular rate Rhythm: regular rhythm Heart sounds: S1 normal heart sound present and S2 normal heart sound present GI Inspection: Yes normal to inspection Palpation (GI): No hepatosplenomegaly present Skin General skin exam: no rashes or lesions noted Extrem General: Yes no clubbing, cyanosis or edema Coding Level of Care Code Est Pt Level 3 (83389) Diagnoses Hypothyroid E03.9 Hyperlipidemia E78.5 Assessment & Plan Assessment & Plan (1) Hypothyroid: Code(s): E03.9 - Hypothyroidism, unspecified Category: Medical Plan: same rx; do labs (2) Hyperlipidemia: Code(s): E78.5 - Hyperlipidemia, unspecified Category: Medical Plan: stable; do labs; same rx Medications: Refilled levothyroxine 100 mcg PO DAILY 90 caps 8RF atorvastatin 40 mg PO DAILY 90 tabs 8RF
== END 2024-08-06 13:51 | disposition home or self-care (01) ==
PROVIDERS: PCP Internal Medicine; Visit Provider Internal Medicine
DX: E03.9 Hypothyroidism, unspecified (principal); E78.5 Hyperlipidemia, unspecified

== ENCOUNTER → 2024-08-06 13:26 | Outpatient (BNVA) | payer OTHER, SELFPAY | PROVIDERS: PCP Internal Medicine; Visit Provider Internal Medicine ==

== ENCOUNTER 2024-11-04 15:23 | Outpatient (REF) | payer OTHER, SELFPAY ==
--- NOTE | ~2024-11-04 | MM_ITS ---
EXAMINATION: MM SCREENING DIGITAL BREAST TOMOSYNTHESIS, BILATERAL CLINICAL INFORMATION: Screening. Asymptomatic. COMPARISON: Mammography: Comparison is made with available priors TECHNIQUE: Digital breast mammography with tomosynthesis is performed in both the craniocaudal and mediolateral oblique views along with computer-aided detection (CAD). FINDINGS: There are scattered areas of fibroglandular density (ACR BI-RADS breast composition Category b). There are no significant masses, abnormal calcifications, or other abnormalities. MM/MM tomosynthesis screening BI IMPRESSION: No mammographic evidence of malignancy. ASSESSMENT: BI-RADS BI-RADS 1 - Negative RECOMMENDATION: Routine annual mammography screening. 1 year F/U This examination should not preclude the clinical evaluation of a suspicious palpable abnormality. This patient's information was entered into a reminder system with a target due date for their next mammogram. Electronically signed by: Yumiko Yun DO 11/11/2024 01:27 PM [facility]
== END 2024-11-04 15:24 | disposition home or self-care (01) ==
LOC: HO.MAMMO 15:23
PROVIDERS: PCP Internal Medicine; Visit Provider Internal Medicine
DX: Z12.31 Encounter for screening mammogram for malignant neoplasm of breast (principal)
CPT/HCPCS: 77063; 77067

== ENCOUNTER → 2024-11-04 16:00 | Outpatient (BNV) | payer OTHER, SELFPAY | PROVIDERS: PCP Internal Medicine; Visit Provider Internal Medicine | DX: Z12.31 Encounter for screening mammogram for malignant neoplasm of breast (principal) | CPT/HCPCS: 77063; 77067 ==

== ENCOUNTER 2024-11-06 14:01 | Outpatient (AMB) | payer OTHER, SELFPAY ==
--- NOTE | 2024-11-06 14:03 | MHC.PC.OV ---
Vital Signs 11/06/24 14:04 Height 5 ft 2 in Weight 219 lb BMI 40.1 BP 138/76 Blood Pressure Location Lt brachial Position Sitting Pulse 112 H Pulse Source Pulse Oximeter Temp 97.7 F Temp Source Temporal Artery Scan Pulse Oximetry (%) 96 Oxygen Delivery Method Room Air Intake Visit Reasons: 3mth f/u Talent Acquisition Coordinator Required: No Accompanied by: Self / Same As Patient Allergies No Known Allergies Allergy (Verified 08/06/24 13:40) Tobacco use date assessed: 11/06/24 Fall risk assessment: No Falls in past year Last assessed Fall Risk: 11/06/24 Dental Screening Dental Screen Date: 11/06/24 Did you have a dental visit in the last 12 months?: No Did you have a dental problem in the last 6 months where you did not have access to dental care?: No Was dental information given to patient?: Patient has dentist HPI 3mth f/u HPI Details hypothyroidism and hyperlipidemia on rx; doing well and compliant [facility] Medical History COVID-19 vaccine series completed Hypothyroid Asthma Obesity Hyperlipidemia Surgical History H/O colonoscopy History of surgery History of total abdominal hysterectomy and bilateral salpingo-oophorectomy History of ventral hernia repair H/O rectal polypectomy History of tubal ligation History of cholecystectomy Family History Father Brain aneurysm Mother Medical history unknown Social History Housing: House Alcohol intake: never Patient Tobacco Use Status: Never used Tobacco Tobacco use type: Cigarette e-Cigarette/Vaping Use: Never Used Second Hand Smoke Exposure: No service: No Current occupational status: employed Cognitive needs: No Hearing needs: No Vision needs: Yes Questionnaire PHQ-9 Over the last 2 weeks, how often have you been bothered by any of the following problems? 1. Little interest or pleasure in doing things: not at all 2. Feeling down, depressed, or hopeless: not at all 3. Trouble falling or staying asleep, or sleeping too much: not at all 4. Feeling tired or having little energy: not at all 5. Poor appetite or overeating: not at all 6. Feeling bad about yourself - or that you are a failure or have let yourself or your family down: not at all 7. Trouble concentrating on things, such as reading the newspaper or watching television: not at all 8. Moving or speaking so slowly that other people could have noticed. Or the opposite - being so fidgety or restless that you have been moving around a lot more than usual: not at all 9. Thoughts that you would be better off or of hurting yourself in some way: not at all Total score: 0 Depression Screening Interpretation: Negative Depression Screening Done: Yes 95313 - PHQ-9 Billing: Yes Source: Developed by Drs. Joaquín Swift, Rosana Garg, Lucas Sales and colleagues, with an educational maite from [employer]. Thrive Questionnaire Date Thrive assessed: 11/06/24 I am a: Patient What is your living situation today?: I have a steady place to live Within the past 12 months, did the food you bought not last and you didn't have the money to get more?: Never true Within the past 12 months, did you worry whether your food would run out before you got money to buy more?: Never true Do you have trouble paying for medicines?: No Do you have trouble getting transportation to medical appointments?: No Do you have trouble paying your heating and electricity bill?: No Do you have trouble taking care of your child, family member or friend?: No Do you have trouble with day-to-day activities such as bathing, preparing meals, shopping, managing finances, etc.?: No Are you currently unemployed and looking for a job?: No Are you interested in more education?: No Please select the resources that you would like help with: None Currently or been in a relationship where the following occur: No concerns reported THRIVE Score: 0 AUDIT C Alcohol Use Questionnaire (AUDIT-C) 1. How often do you have a drink containing alcohol?: Never 3. How often do you have six or more drinks on one occasion?: Never Total Score: 0 Score Reviewed/Action Taken: Yes LUISANA-7 AMB Questionnaire LUISANA-7 Date LUISANA - 7 assessed: 11/06/24 Feeling nervous, anxious, or on edge: 0 = Not at all Not being able to stop or control worryin = Not at all Worrying too much about different things: 0 = Not at all Trouble relaxin = Not at all Being so restless that it is hard to sit still: 0 = Not at all Becoming easily annoyed or irritable: 0 = Not at all Feeling afraid as if something awful might happen: 0 = Not at all Total LUISANA-7 score (0-4 normal; 5-9 mild; 10-14 moderate; 15-21 severe): 0 Source: Developed by Drs. Joaquín Swift, Rosana Garg, Lucas Sales and colleagues, with an educational maite from [employer]. LUISANA-7 Assessment Billing LUISANA-7 Assessment Tool: LUISANA-7 Assessment 81893 Review of Systems Const Denies chills, Denies headache(s) and Denies weight loss ENT Denies headache(s) Card Denies chest pain, Denies syncope, Denies irregular heart rhythm and Denies dyspnea Resp Denies chest congestion, Denies cough and Denies dyspnea GI Denies abdominal pain, Denies change in stool character, Denies nausea and Denies vomiting Musc Denies deformity and Denies joint swelling Neuro Denies syncope and Denies headache(s) Physical exam (Primary Care) Vital Signs: Last Vital Signs Temp 97.7 F 11/06/24 14:04 Pulse 112 H 11/06/24 14:04 BP 138/76 11/06/24 14:04 Pulse Ox 96 11/06/24 14:04 Oxygen Delivery Method Room Air 11/06/24 14:04 BMI result Body Mass Index 40.1 Tobacco/Smoking Status: Tobacco use Status Tobacco use date assessed 11/06/24 11/06/24 14:09 Patient Tobacco Use Status Never used Tobacco 11/06/24 14:04 Tobacco use type Cigarette 11/06/24 14:04 e-Cigarette/Vaping Use Never Used 11/06/24 14:04 PHQ-9: PHQ-9 Score PHQ-9: Total score 0 11/06/24 14:04 Depression Screening Interpretation: Negative Thrive Assessment: Date of Thrive Assessment Date Thrive assessed 11/06/24 11/06/24 14:04 Currently or been in a relationship where the following occur: No concerns reported Const General: cooperative, comfortable, no acute distress and alert Neck Neck: Yes no lymphadenopathy Thyroid: Thyroid normal Resp Effort & Inspection: normal respiratory effort Auscultation: clear to auscultation bilaterally Percussion: percussion normal Cardio Jugular venous distension: no JVD Palpation: normal PMI Rate: regular rate Rhythm: regular rhythm Heart sounds: S1 normal heart sound present and S2 normal heart sound present GI Inspection: Yes normal to inspection Palpation (GI): No hepatosplenomegaly present Skin General skin exam: no rashes or lesions noted Extrem General: Yes no clubbing, cyanosis or edema Coding Level of Care Code Est Pt Level 3 (49578) Diagnoses Hypothyroid E03.9 Additional Codes LUISANA-7 Assessment Billing - LUISANA-7 Assessment Tool: LUISANA-7 Assessment 43361 ([id number]) PHQ-9 - 21178 - PHQ-9 Billing: Yes ([id number]) Assessment & Plan Assessment & Plan (1) Hypothyroid: Code(s): E03.9 - Hypothyroidism, unspecified Category: Medical Plan: stable; same rx; do labs
[2024-11-06 14:04] VITALS: BP 138/76; PULSE 112; TEMP 36.5; O2SAT 96; BMI 40.1
== END 2024-11-06 14:16 | disposition home or self-care (01) ==
PROVIDERS: PCP Internal Medicine; Visit Provider Internal Medicine
DX: E03.9 Hypothyroidism, unspecified (principal)

== ENCOUNTER → 2024-11-06 14:01 | Outpatient (BNVA) | payer OTHER, SELFPAY | PROVIDERS: PCP Internal Medicine; Visit Provider Internal Medicine | DX: E03.9 Hypothyroidism, unspecified (principal); E78.5 Hyperlipidemia, unspecified | CPT/HCPCS: 96127 ==

== ENCOUNTER 2025-03-24 12:10 | Outpatient (AMB) | payer OTHER, SELFPAY ==
--- NOTE | 2025-03-24 12:21 | MHC.PC.OV ---
Vital Signs 03/24/25 12:22 Height 5 ft 2 in Weight 213 lb BMI 39.0 BP 130/76 Blood Pressure Location Lt brachial Position Sitting Intake Visit Reasons: GIRISH from Dr. Hollis/ follow up City Attorney Required: No Accompanied by: Self / Same As Patient Allergies No Known Allergies Allergy (Verified 03/24/25 12:34) Medication List - Last Reconciled 03/24/25 by Yuni Fraser MD atorvastatin 40 mg PO DAILY levothyroxine 100 mcg PO DAILY Tobacco use date assessed: 03/24/25 Fall risk assessment: No Falls in past year Last assessed Fall Risk: 03/24/25 Dental Screening Dental Screen Date: 11/06/24 HPI HPI Comments History of Present Illness Details The patient is a 69-year-old female presenting with concerns regarding her thyroid function and asthma. She has a history of hypothyroidism and has been on levothyroxine 100 mcg daily. The patient expresses concerns about her current thyroid function and its impact on her weight and hair. The last thyroid assessment was over a year ago, and she desires a re-evaluation to adjust her medication if necessary. She also reports breast-related discomfort and seeks management for her asthma symptoms, although she denies recent wheezing. Her asthma history includes previous use of a CPAP machine, which was discontinued after pharyngeal surgery. The patient is currently using atorvastatin for hyperlipidemia and has undergone multiple surgeries, including a hysterectomy and ventral hernia repair. [facility] Medical History (Updated 03/24/25 @ 12:44 by Yuni Fraser MD) COVID-19 vaccine series completed Hypothyroid Asthma Obesity Hyperlipidemia Surgical History H/O colonoscopy History of surgery History of total abdominal hysterectomy and bilateral salpingo-oophorectomy History of ventral hernia repair H/O rectal polypectomy History of tubal ligation History of cholecystectomy Family History Father Brain aneurysm Mother Medical history unknown Social History Housing: House Alcohol intake: never Patient Tobacco Use Status: Never used Tobacco e-Cigarette/Vaping Use: Never Used Second Hand Smoke Exposure: No service: No Current occupational status: employed Current occupational exposures/hazards: No Cognitive needs: No Hearing needs: No Vision needs: Yes Questionnaire PHQ-9 Over the last 2 weeks, how often have you been bothered by any of the following problems? 1. Little interest or pleasure in doing things: not at all 2. Feeling down, depressed, or hopeless: not at all 3. Trouble falling or staying asleep, or sleeping too much: not at all 4. Feeling tired or having little energy: not at all 5. Poor appetite or overeating: not at all 6. Feeling bad about yourself - or that you are a failure or have let yourself or your family down: not at all 7. Trouble concentrating on things, such as reading the newspaper or watching television: not at all 8. Moving or speaking so slowly that other people could have noticed. Or the opposite - being so fidgety or restless that you have been moving around a lot more than usual: not at all 9. Thoughts that you would be better off or of hurting yourself in some way: not at all Total score: 0 Depression Screening Interpretation: Negative Depression Screening Done: Yes 49431 - PHQ-9 Billing: Yes Source: Developed by Drs. Joaquín Swift, Rosana Garg, Lucas Sales and colleagues, with an educational maite from [employer]. Thrive Questionnaire Date Thrive assessed: 03/24/25 I am a: Patient What is your living situation today?: I have a steady place to live Within the past 12 months, did the food you bought not last and you didn't have the money to get more?: Never true Within the past 12 months, did you worry whether your food would run out before you got money to buy more?: Never true Do you have trouble paying for medicines?: No Do you have trouble getting transportation to medical appointments?: No Do you have trouble paying your heating and electricity bill?: No Do you have trouble taking care of your child, family member or friend?: No Do you have trouble with day-to-day activities such as bathing, preparing meals, shopping, managing finances, etc.?: No Are you currently unemployed and looking for a job?: No Are you interested in more education?: No Please select the resources that you would like help with: None Currently or been in a relationship where the following occur: No concerns reported THRIVE Score: 0 AUDIT C Alcohol Use Questionnaire (AUDIT-C) 1. How often do you have a drink containing alcohol?: Never Total Score: 0 Score Reviewed/Action Taken: No LUISANA-7 AMB Questionnaire LUISANA-7 Date LUISANA - 7 assessed: 11/06/24 Feeling nervous, anxious, or on edge: 0 = Not at all Not being able to stop or control worryin = Not at all Worrying too much about different things: 0 = Not at all Trouble relaxin = Not at all Being so restless that it is hard to sit still: 0 = Not at all Becoming easily annoyed or irritable: 0 = Not at all Feeling afraid as if something awful might happen: 0 = Not at all Total LUISANA-7 score (0-4 normal; 5-9 mild; 10-14 moderate; 15-21 severe): 0 Source: Developed by Drs. Joaquín Swift, Rosana Garg, Lucas Sales and colleagues, with an educational maite from [employer]. LUISANA-7 Assessment Billing LUISANA-7 Assessment Tool: LUISANA-7 Assessment 07213 Review of Systems Const All systems reviewed & are unremarkable except as noted in HPI and below Card Denies chest pain at rest, Denies chest pain with activity, Denies edema, Denies irregular heart rhythm, Denies claudication, Denies dyspnea, Denies dyspnea on exertion, Denies orthopnea, Denies paroxysmal nocturnal dyspnea and Denies slow heart rate Resp Denies cough, Denies dyspnea and Denies dyspnea on exertion GI Denies abdominal pain, Denies change in bowel habits, Denies excessive flatus, Denies nausea and Denies vomiting Skin/Breast Denies bleeding lesions, Denies changing lesions and Denies rash Physical exam (Primary Care) Vital Signs: Last Vital Signs BP 130/76 03/24/25 12:22 BMI result Body Mass Index 39.0 Tobacco/Smoking Status: Tobacco use Status Tobacco use date assessed 03/24/25 03/24/25 12:29 Patient Tobacco Use Status Never used Tobacco 03/24/25 12:22 Tobacco use type 03/24/25 12:29 e-Cigarette/Vaping Use Never Used 03/24/25 12:22 PHQ-9: PHQ-9 Score PHQ-9: Total score 0 03/24/25 12:22 Depression Screening Interpretation: Negative Thrive Assessment: Date of Thrive Assessment Date Thrive assessed 03/24/25 03/24/25 12:22 Currently or been in a relationship where the following occur: No concerns reported Resp Effort & Inspection: normal respiratory effort Auscultation: clear to auscultation bilaterally Cardio Jugular venous distension: no JVD Rate: regular rate Rhythm: regular rhythm Heart sounds: S1 normal heart sound present and S2 normal heart sound present Extrem General: Yes full ROM Coding Level of Care Code Est Pt Level 4 (76990) Complex EM visit Add On G2211 Diagnoses Hypothyroid E03.9 Hyperlipidemia E78.5 Obesity E66.9 Asthma J45.909 Additional Codes PHQ-9 - 29002 - PHQ-9 Billing: Yes ([id number]) LUISANA-7 Assessment Billing - LUISANA-7 Assessment Tool: LUISANA-7 Assessment 46783 ([id number]) Time Spent (min) 23 Assessment & Plan Assessment & Plan (1) Hypothyroid: Code(s): E03.9 - Hypothyroidism, unspecified Category: Medical (2) Hyperlipidemia: Code(s): E78.5 - Hyperlipidemia, unspecified Category: Medical (3) Obesity: Code(s): E66.9 - Obesity, unspecified Category: Medical (4) Asthma: Code(s): J45.909 - Unspecified asthma, uncomplicated Category: Medical Plan The patient's thyroid function will be reassessed with a test today to evaluate the current levothyroxine dosage and address concerns about weight and hair loss. A fasting blood test is scheduled in four months to monitor cholesterol, blood sugar, and organ function. An inhaler will be provided for asthma symptom management, with instructions to use as needed, and further evaluation will occur in four months unless symptoms necessitate an earlier visit. Patient was informed and verbally consented to the use of an ambient scribe for clinic note documentation during this visit. I discussed with the patient the importance of re-evaluating her thyroid function to ensure optimal management of her hypothyroidism, particularly in light of her concerns about weight and hair loss. We agreed on testing her thyroid today and conducting additional blood tests in four months. I also addressed her asthma management, providing an inhaler for use as needed. I explained the plan to monitor symptoms and adjust treatment if necessary. The patient understood and agreed with the plan, and we scheduled a follow-up in four months, with instructions to return sooner if symptoms worsen. Orders: Orders Thyroid Stimulating Hormone Today E03.9 - Hypothyroidism, unspecified Thyroid Stimulating Hormone 4 Months E03.9 - Hypothyroidism, unspecified Lipid Panel 4 Months E78.5 - Hyperlipidemia, unspecified Comprehensive Met. Panel 4 Months E78.5 - Hyperlipidemia, unspecified Medications: New albuterol sulfate 90 mcg/actuation (Ventolin HFA) 2 puffs inhalation Q6H 30 days PRN 6.7 grams 1RF shortness of breath or wheezing J45.909 - Unspecified asthma, uncomplicated Patient Instructions: - Use the inhaler as needed for asthma symptoms. - Undergo the thyroid function test today. - Return for fasting blood work in four months for comprehensive evaluation. - Monitor symptoms and return sooner if asthma or breast discomfort worsens.
[2025-03-24 12:22] VITALS: BP 130/76; BMI 39.0
== END 2025-03-24 12:43 | disposition home or self-care (01) ==
LOC: HO.HMCH 12:11
PROVIDERS: PCP Internal Medicine; Visit Provider Internal Medicine
DX: E03.9 Hypothyroidism, unspecified (principal); E78.5 Hyperlipidemia, unspecified; E66.9 Obesity, unspecified; Z68.39 Body mass index [BMI] 39.0-39.9, adult; J45.909 Unspecified asthma, uncomplicated

== ENCOUNTER → 2025-03-24 12:10 | Outpatient (BNVA) | payer OTHER, SELFPAY | PROVIDERS: PCP Internal Medicine; Visit Provider Internal Medicine | DX: E03.9 Hypothyroidism, unspecified (principal); E78.5 Hyperlipidemia, unspecified; E66.9 Obesity, unspecified; Z68.39 Body mass index [BMI] 39.0-39.9, adult; J45.909 Unspecified asthma, uncomplicated; Z79.899 Other long term (current) drug therapy | CPT/HCPCS: 96127 ==